=== PATIENT | male | born 1980 | race African-American/Black ===

== ENCOUNTER 2022-01-11 16:33 | Inpatient (IN) | payer OTHER, SELFPAY ==
[~2022-01-11 16:33] MED LIST: ISOVUE-370 76%-LOCM 1 ML ONE
[2022-01-11] MEDS ORDERED: Boostrix 0.5 ML (Tdap) VIAL ONE (16:46)
[2022-01-11 16:58] LABS: #Lymphocytes 1.9 thou/uL (1.20-3.40); #Monocytes 0.5 thou/uL (0.11-0.59); #Neutrophils 6.1 thou/uL (1.40-6.50); %Basophils 0.4 % (0.0-1.0); %Eosinophils 0.5 % (0.0-10.0); %Lymphocytes 22.5 % (21.0-51.0); %Monocytes 6.2 % (0.0-10.0); %Neutrophils 70.4 % (42.0-75.0); Hemoglobin 13.6 g/dL (14.0-18.0); Mean Corpuscular HGB CONC 33.1 g/dL (32.0-36.0); Mean Corpuscular Hemoglobin 33.3 pg (27.0-31.0); Mean Platelet Volume 7.5 fL (7.4-10.4); Platelet Count 227 thou/uL (130-400); RBC Distribution Width 10.8 % (11.5-14.5); Red Blood Cell (RBC) Count 4.09 mill/uL (4.70-6.10); White Blood Cell (WBC) Count 8.6 thou/uL (4.8-10.8)
[2022-01-11 17:21] LABS: Albumin 4.6 g/dL (3.5-5.0); Anion Gap 11 mmol/L (10-20); BUN (Urea Nitrogen) 14 mg/dL (8.9-20.6); Bilirubin, Total 2.1 mg/dL (0.2-1.2); Calc. Creatinine Clearance 0 mL/min (70-130); Calcium 9.6 mg/dL (7.8-10.44); Carbon Dioxide 28 mmol/L (22-29); Chloride 103 mmol/L (98-107); Estimated GFR 101; Globulin 3.2 g/dL (2.4-3.5); Glucose 110 mg/dL (70-105); Potassium 3.5 mmol/L (3.5-5.1); Protein, Total 7.8 g/dL (6.0-8.3); Sodium 138 mmol/L (136-145)
[2022-01-11 17:22] LABS: ALT (SGPT) 21 U/L (8-55); AST (SGOT) 25 U/L (5-34); Alkaline Phosphatase 48 U/L (40-110); Lipase 25 U/L (8-78)
[2022-01-11] MEDS ORDERED: CEFAZOLIN 1 GM VIAL ONE (17:57)
[2022-01-11] MEDS ORDERED: Ondansetron PF 4 MG/2 ML Vial IVP PRN (18:53)
[2022-01-11] MEDS ORDERED: traMADol HCl 50 MG TAB PO PRN (18:53)
[2022-01-11] MEDS ORDERED: Promethazine HCl 25 MG/ML VIAL IM PRN (18:53)
[2022-01-11] MEDS ORDERED: Acetaminophen 325 MG TAB PO PRN (18:53)
[2022-01-11] MEDS ORDERED: Morphine 2 MG/ML VIAL SLOW IVP PRN (18:53)
[2022-01-11] MEDS ORDERED: hydrALAZINE 20 MG/ML VIAL SLOW IVP PRN (18:53)
[2022-01-11] MEDS ORDERED: Morphine 4 MG/ML VIAL ONE (19:07)
[2022-01-11 19:13] LABS: Bilirubin Negative (Negative); Blood, Urine Negative (Negative); Clarity Clear (Clear); Glucose, Urine (Dipstick) Normal (Negative); Ketone, Urine Negative (Negative); Leukocyte Negative Leu/uL (Negative); Nitrite Negative (Negative); Protein, Urine (Dipstick) Negative (Neg-Trace); Specific Gravity, Urine 1.046 (1.002-1.036); Urobilinogen Normal mg/dL (Less than 2)
[2022-01-11] MEDS ORDERED: Ketorolac Tromethamine 30 MG/ML VIAL ONE (19:13)
[2022-01-11] MEDS ORDERED: Piperacillin/Tazobactam 3.375 GM in Sodium Chloride 0.9% 100 ML IVPB SCH ×2 (19:15→23:59)
[2022-01-11 20:12] VITALS: BMI 21.3
[2022-01-11] MEDS: Senokot S 8.6-50 MG TAB PO SCH (20:40)
[2022-01-11] MEDS: Sodium Chloride 0.9% 1,000 ML IV SCH (20:41)
[2022-01-11] MEDS: Famotidine 20 MG TAB PO SCH (20:46)
[2022-01-11] MEDS: Piperacillin/Tazobactam 3.375 GM in Sodium Chloride 0.9% 100 ML IVPB SCH (23:38)
[2022-01-11] MEDS: traMADol HCl 50 MG TAB PO SCH (23:39)
[2022-01-11 23:43] LABS: SARS-CoV-2 NAA Rapid Test Not Detected (NotDetected)
[2022-01-12] MEDS: Sodium Chloride 0.9% 1,000 ML IV SCH ×3 (04:20→22:13)
[2022-01-12] MEDS: traMADol HCl 50 MG TAB PO SCH ×4 (05:16→22:45)
[2022-01-12] MEDS: Piperacillin/Tazobactam 3.375 GM in Sodium Chloride 0.9% 100 ML IVPB SCH ×3 (06:30→22:13)
[2022-01-12] MEDS: Polyethylene Glycol 3350 17 GM Packet PO SCH ×2 (10:06→10:10)
[2022-01-12] MEDS: Senokot S 8.6-50 MG TAB PO SCH ×4 (10:06→20:19)
[2022-01-12] MEDS: Famotidine 20 MG TAB PO SCH ×2 (10:10→20:19)
[2022-01-12 11:42] LABS: #Lymphocytes 1.6 thou/uL (1.20-3.40); #Monocytes 0.7 thou/uL (0.11-0.59); #Neutrophils 6.5 thou/uL (1.40-6.50); %Basophils 0.1 % (0.0-1.0); %Eosinophils 0.5 % (0.0-10.0); %Monocytes 7.5 % (0.0-10.0); Hemoglobin 13.1 g/dL (14.0-18.0); Mean Corpuscular HGB CONC 33.6 g/dL (32.0-36.0); Mean Corpuscular Hemoglobin 33.6 pg (27.0-31.0); Mean Platelet Volume 7.8 fL (7.4-10.4); Platelet Count 215 thou/uL (130-400); RBC Distribution Width 10.8 % (11.5-14.5); Red Blood Cell (RBC) Count 3.89 mill/uL (4.70-6.10); White Blood Cell (WBC) Count 8.8 thou/uL (4.8-10.8)
[2022-01-12 11:48] LABS: Phosphorus 2.7 mg/dL (2.3-4.7)
[2022-01-12 11:50] LABS: Anion Gap 14 mmol/L (10-20); BUN (Urea Nitrogen) 12 mg/dL (8.9-20.6); Calc. Creatinine Clearance 103 mL/min (70-130); Calcium 8.9 mg/dL (7.8-10.44); Carbon Dioxide 22 mmol/L (22-29); Chloride 106 mmol/L (98-107); Estimated GFR 95; Glucose 98 mg/dL (70-105); Magnesium 1.8 mg/dL (1.6-2.6); Potassium 3.9 mmol/L (3.5-5.1); Sodium 138 mmol/L (136-145)
[2022-01-12] MEDS ORDERED: Melatonin 3 MG TAB PO ONE (22:29)
[2022-01-12] MEDS ORDERED: CEFAZOLIN 2 GM in Sodium Chloride 0.9% 100 ML IVPB SCH (22:45)
[2022-01-13] MEDS: traMADol HCl 50 MG TAB PO SCH ×3 (05:18→19:21)
[2022-01-13] MEDS: Sodium Chloride 0.9% 1,000 ML IV SCH (05:25)
[2022-01-13] MEDS: Piperacillin/Tazobactam 3.375 GM in Sodium Chloride 0.9% 100 ML IVPB SCH ×3 (06:06→23:38)
[2022-01-13] MEDS: Famotidine 20 MG TAB PO SCH ×2 (09:00→20:04)
[2022-01-13] MEDS: Polyethylene Glycol 3350 17 GM Packet PO SCH ×2 (09:00)
[2022-01-13] MEDS: Senokot S 8.6-50 MG TAB PO SCH ×3 (09:00→20:04)
[2022-01-13] MEDS ORDERED: Bupivacaine PF 0.5% 30 ML VIAL ONE (10:38)
[2022-01-13] MEDS ORDERED: Neomycin-Polymyxin 1 ML AMP ONE (10:38)
[2022-01-13] MEDS ORDERED: Thrombin 5000 UNITS/5 ML VIAL ONE (10:38)
[2022-01-13] MEDS ORDERED: Bacitracin Zinc Ointment 30 gm TUBE ONE (10:38)
[2022-01-13] MEDS ORDERED: Mineral Oil Sterile 10 ML VIAL ONE (10:38)
[2022-01-13] MEDS ORDERED: fentaNYL Citrate/PF 100 MCG/2 ML SYRINGE ONE (10:49)
[2022-01-13] MEDS ORDERED: Ketorolac Tromethamine 30 MG/ML VIAL ONE (11:13)
[2022-01-13] MEDS ORDERED: Lidocaine 1% PF 5 ML VIAL ONE (11:13)
[2022-01-13] MEDS ORDERED: Ondansetron PF 4 MG/2 ML Vial ONE (11:13)
[2022-01-13] MEDS ORDERED: Dexamethasone 20 MG/5 ML VIAL ONE (11:13)
[2022-01-13] MEDS ORDERED: PROPOFOL 200 MG/20 ML VIAL ONE (11:13)
[2022-01-13] MEDS ORDERED: HYDROmorphone 2 MG/ML VIAL ONE (11:56)
[2022-01-13] MEDS ORDERED: PACU-Morphine 4MG/ML VIAL SLOW IVP PRN (13:03)
[2022-01-13] MEDS ORDERED: Meperidine HCl/PF 25 MG/ML VIAL SLOW IVP PRN (13:03)
[2022-01-13] MEDS ORDERED: Promethazine HCl 25 MG/ML VIAL IVPB PRN (13:03)
[2022-01-13] MEDS ORDERED: HYDROmorphone 2 MG/ML VIAL SLOW IVP PRN (13:03)
[2022-01-13] MEDS ORDERED: Promethazine HCl 25 MG/ML VIAL IM PRN (13:03)
[2022-01-13] MEDS ORDERED: Ondansetron HCl/PF 4 MG/2 ML Vial IVP PRN (13:03)
[2022-01-13] MEDS ORDERED: Ketorolac Tromethamine 30 MG/ML VIAL IVP PRN (13:03)
[2022-01-13] MEDS ORDERED: Morphine Sulfate 2 MG/ML SYRINGE SLOW IVP PRN (13:03)
[2022-01-13] MEDS ORDERED: Melatonin 3 MG TAB PO PRN (20:59)
[2022-01-13] MEDS: Acetaminophen/Codeine 30-300mg Tablet PO SCH (23:37)
[2022-01-14] MEDS: Acetaminophen/Codeine 30-300mg Tablet PO SCH ×2 (05:02→11:28)
[2022-01-14] MEDS: Piperacillin/Tazobactam 3.375 GM in Sodium Chloride 0.9% 100 ML IVPB SCH (06:30)
[2022-01-14 07:39] LABS: #Lymphocytes 2.2 thou/uL (1.20-3.40); #Monocytes 0.7 thou/uL (0.11-0.59); #Neutrophils 5.8 thou/uL (1.40-6.50); %Basophils 0.1 % (0.0-1.0); %Eosinophils 0.4 % (0.0-10.0); %Lymphocytes 24.7 % (21.0-51.0); %Monocytes 8.4 % (0.0-10.0); %Neutrophils 66.4 % (42.0-75.0); Hemoglobin 10.7 g/dL (14.0-18.0); Mean Corpuscular HGB CONC 33.6 g/dL (32.0-36.0); Mean Corpuscular Hemoglobin 33.8 pg (27.0-31.0); Mean Platelet Volume 7.5 fL (7.4-10.4); Platelet Count 196 thou/uL (130-400); RBC Distribution Width 10.5 % (11.5-14.5); Red Blood Cell (RBC) Count 3.18 mill/uL (4.70-6.10); White Blood Cell (WBC) Count 8.7 thou/uL (4.8-10.8)
[2022-01-14] MEDS: Polyethylene Glycol 3350 17 GM Packet PO SCH (08:43)
[2022-01-14] MEDS: Senokot S 8.6-50 MG TAB PO SCH (08:43)
[2022-01-14] MEDS: Famotidine 20 MG TAB PO SCH (08:43)
[2022-01-14 11:30] VITALS: BP 128/73; TEMP 98.1
== END 2022-01-14 12:50 | disposition home or self-care (01) | DRG 902 ==
LOC: ERS 16:33 → SURG B 18:53
PROVIDERS: ADMIT Orthopaedic Surgery Hand Surgery; ATTEND Specialist
PROC: 0JBH0ZZ Excision of Left Lower Arm Subcutaneous Tissue and Fascia, Open Approach (ICD-10-PCS; principal; 2022-01-11)
PROC: 0JCH0ZZ Extirpation of Matter from Left Lower Arm Subcutaneous Tissue and Fascia, Open Approach (ICD-10-PCS; 2022-01-11)
PROC: 0LQ40ZZ Repair Left Upper Arm Tendon, Open Approach (ICD-10-PCS; 2022-01-11)
DX: S51.022A Laceration with foreign body of left elbow, initial encounter (principal); S46.322A Laceration of muscle, fascia and tendon of triceps, left arm, initial encounter; S61.522A Laceration with foreign body of left wrist, initial encounter; Z20.822 Contact with and (suspected) exposure to COVID-19; V54.5XXA Driver of pick-up truck or van injured in collision with heavy transport vehicle or bus in traffic accident, initial encounter; Y92.410 Unspecified street and highway as the place of occurrence of the external cause
CPT/HCPCS: 36415; 70450; 71260; 72125; 74177; 76000; 80048; 80053; 81003; 83690; 83735; 84100; 85025; 86850; 86900; 86901; 90715; 93005; G0390; J0690; J1100; J1170; J1885; J2270; J2405; J2543; J2704; J3490; J7050; Q9966; S0020; U0002